=== PATIENT | female | born 1950 | race Caucasian/White ===

== ENCOUNTER → 2017-11-17 | Outpatient (CLI) | payer OTHER ==
[~2017-11-17] MED LIST: EFFEXOR XR75 MG PO; MAXZIDE-25 MG1 EACH PO; OSTEO BI-FLEX1 EAC1 PO; PRILOSEC OTC20 MG PO; SYMBICORT80 MCG/4.1 INH; VERAPAMIL E.R240 M1 PO
== END ==
LOC: M.MRI 07:45
DX: M54.16 Radiculopathy, lumbar region (principal); M54.32 Sciatica, left side

== ENCOUNTER → 2019-11-21 | Outpatient (CLI) | payer OTHER | LOC: M.RAD 09:53 | DX: Z12.31 Encounter for screening mammogram for malignant neoplasm of breast (principal); N64.89 Other specified disorders of breast ==

== ENCOUNTER → 2021-05-21 | Outpatient (CLI) | payer OTHER | LOC: M.RAD 05-15 15:00 | PROVIDERS: ATTEND Family Medicine | DX: Z12.31 Encounter for screening mammogram for malignant neoplasm of breast (principal) ==

== ENCOUNTER → 2021-09-11 | Outpatient (CLI) | payer OTHER | LOC: M.MRI 13:08 | PROVIDERS: ATTEND Family Medicine | DX: M47.27 Other spondylosis with radiculopathy, lumbosacral region (principal); M25.851 Other specified joint disorders, right hip; M47.26 Other spondylosis with radiculopathy, lumbar region; M16.11 Unilateral primary osteoarthritis, right hip; M48.07 Spinal stenosis, lumbosacral region ==

== ENCOUNTER → 2021-09-19 | Outpatient (CLI) | payer OTHER | LOC: M.MRI 09-18 09:59 | PROVIDERS: ATTEND Family Medicine | DX: S76.011A Strain of muscle, fascia and tendon of right hip, initial encounter (principal); M16.11 Unilateral primary osteoarthritis, right hip; M25.751 Osteophyte, right hip; M25.851 Other specified joint disorders, right hip; N28.1 Cyst of kidney, acquired; M62.58 Muscle wasting and atrophy, not elsewhere classified, other site; M25.452 Effusion, left hip; M87.08 Idiopathic aseptic necrosis of bone, other site; X58.XXXA Exposure to other specified factors, initial encounter; Y93.89 Activity, other specified; Y92.89 Other specified places as the place of occurrence of the external cause; Y99.8 Other external cause status ==